=== PATIENT | male | born 1990 | race African-American/Black ===

== ENCOUNTER 2017-03-06 23:55 | Emergency (ER) | payer SELFPAY ==
--- NOTE | 2017-03-07 00:14 | PDOC ---
History of Present Illness - General History Source: Patient Exam Limitations: No Limitations - History of Present Illness Initial Comments: 03/07/17 02:44 Patient is a 26 year old male with no significant past medical history of who presents to the ED with complaints of sore throat that began 5 days ago. Patient reports experiencing sore throat symptoms secondary to lump in throat that he states began suddenly 5 days ago. He reports no change in diet or change in appetite but does state pain is reproduced by swallowing. Patient reports taking cough syrup for pain with minimal relief. Denies chest pain, SOB. Denies nausea, vomiting. Denies fevers, chills. Denies contact with sick individuals, out of state travelling. Denies any other symptoms. Allergies: None Social history: No smoke. No alcohol. Current Marijuana use. Surgical history: None PMD: Dr. Crain <Lamont Hester - Last Filed: 03/07/17 02:44> <Mariela Powell - Last Filed: 03/07/17 20:58> - General Stated Complaint: PAIN Time Seen by Provider: 03/07/17 00:07 Past History <Lamont Hester - Last Filed: 03/07/17 02:44> - Past Medical History Anemia: No Asthma: No Cancer: No Cardiac Disorders: No CVA: No COPD: No CHF: No Dementia: No Diabetes: Yes (borderline) GI Disorders: No Disorders: No HTN: No Hypercholesterolemia: No Liver Disease: No Seizures: No Thyroid Disease: No - Surgical History Abdominal Surgery: No Appendectomy: No Cardiac Surgery: No Cholecystectomy: No Lung Surgery: No Neurologic Surgery: No Orthopedic Surgery: No - Suicide/Smoking/Psychosocial Hx Smoking History: Never smoked Have you smoked in the past 12 months: No Hx Alcohol Use: No Drug/Substance Use Hx: Yes Substance Use Type: Marijuana <Mariela Powell - Last Filed: 03/07/17 20:58> - Past Medical History Allergies/Adverse Reactions: Allergies Allergy/AdvReac Type Severity Reaction Status Date / Time No Known Allergies Allergy Verified 03/07/17 00:18 Home Medications: Ambulatory Orders Acetaminophen [Tylenol .Regular Strength -] 650 mg PO Q6H PRN #100 tablet Amoxicillin/Potassium Clav [Augmentin 875-125 Tablet] 1 each PO BID #28 tablet 08/01/13 Mupirocin Cream [Bactroban 2% Cream -] 1 applic TP BID #1 tube 08/01/13 Review of Systems - Review of Systems Able to Perform ROS?: Yes Comments:: 03/07/17 02:44 GENERAL/CONSTITUTIONAL: No fever or chills. No weakness. HEAD, EYES, EARS, NOSE AND THROAT: +Sore throat. No change in vision. No ear pain or discharge. CARDIOVASCULAR: No chest pain or shortness of breath. RESPIRATORY: No cough, wheezing, or hemoptysis. GASTROINTESTINAL: No nausea, vomiting, diarrhea or constipation. GENITOURINARY: No dysuria, frequency, or change in urination. MUSCULOSKELETAL: No joint or muscle swelling or pain. No neck or back pain. SKIN: No rash NEUROLOGIC: No headache, vertigo, loss of consciousness, or change in strength/ sensation. ENDOCRINE: No increased thirst. No abnormal weight change. HEMATOLOGIC/LYMPHATIC: No anemia, easy bleeding, or history of blood clots. ALLERGIC/IMMUNOLOGIC: No hives or skin allergy. All Other Systems: Reviewed and Negative <Lamont Hester - Last Filed: 03/07/17 02:44> *Physical Exam - Vital Signs Last Vital Signs Temp Pulse Resp BP Pulse Ox 98.2 F 56 L 20 147/89 99 03/07/17 00:18 03/07/17 00:18 03/07/17 00:18 03/07/17 00:18 03/07/17 00:18 - Physical Exam Comments: 03/07/17 02:44 GENERAL: Awake, alert, and fully oriented, in no acute distress HEAD: No signs of trauma EYES: PERRLA, EOMI, sclera anicteric, conjunctiva clear ENT: +Pot throat. Auricles normal inspection, hearing grossly normal, nares patent, oropharynx clear without exudates. Moist mucosa NECK: Normal ROM, supple, no lymphadenopathy, JVD, or masses LUNGS: Breath sounds equal, clear to auscultation bilaterally. No wheezes, and no crackles HEART: Regular rate and rhythm, normal S1 and S2, no murmurs, rubs or gallops ABDOMEN: Soft, nontender, normoactive bowel sounds. No guarding, no rebound. No masses EXTREMITIES: Normal range of motion, no edema. No clubbing or cyanosis. No cords, erythema, or tenderness NEUROLOGICAL: Cranial nerves II through XII grossly intact. Normal speech, normal gait SKIN: Warm, Dry, normal turgor, no rashes or lesions noted. <Lamont Hester - Last Filed: 03/07/17 02:44> ED Treatment Course - ADDITIONAL ORDERS Additional order review: 03/07/17 00:50 Group A Strep Rapid Antigen - Final Throat <Lamont Hester - Last Filed: 03/07/17 02:44> Medical Decision Making - Medical Decision Making 03/07/17 20:57 Pt comes with sore throat. He is strep -; he smokes pot which is irritating the throat. Pt also has viral illness. D/c home <Mariela Powell - Last Filed: 03/07/17 20:58> *DC/Admit/Observation/Transfer - Attestations Scribe Attestion: 03/07/17 02:44 Documentation prepared by Lmaont Hester, acting as medical office clerk for Mariela Powell MD/DO. <Lamont Hester - Last Filed: 03/07/17 02:44> <Mariela Powell - Last Filed: 03/07/17 20:58> Diagnosis at time of Disposition: Viral pharyngitis, Cannabis abuse, episodic use - Discharge Dispostion Disposition: HOME Condition at time of disposition: Stable - Referrals Referrals: Elvia Crain MD [Primary Care Provider] - - Patient Instructions Printed Discharge Instructions: DI for Viral Pharyngitis
[2017-03-07 00:22] VITALS: BP 147/89; PULSE 56; TEMP 98.2; BMI 52.4
== END 2017-03-07 02:25 | disposition home or self-care (01) ==
LOC: JER 23:55
DX: J02.9 Acute pharyngitis, unspecified (principal); B97.89 Other viral agents as the cause of diseases classified elsewhere; F12.10 Cannabis abuse, uncomplicated
CPT/HCPCS: 87070; 87430; 99281-25

== ENCOUNTER 2020-03-13 07:16 | Emergency (ER) | payer OTHER ==
[2020-03-13 07:46] VITALS: TEMP 98.5; BMI 39.8
[2020-03-13] MEDS ORDERED: IBUPROFEN 600 MG TABLET (FP) PO ONE ×2 (08:36→08:41)
[2020-03-13] MEDS ORDERED: FAMOTIDINE 10 MG TABLET PO ONE (08:36)
[2020-03-13] MEDS ORDERED: MAG HYDROX/AL HYDROX/SIMETH -MYLANTA- ORAL SUSPENSION PO ONE (08:36)
[2020-03-13] MEDS ORDERED: MAG HYDROX/AL HYDROX/SIMETH 30 ML UNIT-DOSE CUP ONE (08:41)
[2020-03-13] MEDS ORDERED: FAMOTIDINE 10 MG TABLET ONE (08:41)
[2020-03-13 09:08] LABS: BASO % 0.7 % (0-2.0); EOS % 0.4 % (0-4.5); HEMATOCRIT 43.3 % (35.4-49); HEMOGLOBIN 13.9 GM/dL (11.7-16.9); LYMPH % 24.1 % (8-40); MEAN CELL VOLUME 81.2 fl (80-96); MEAN PLT VOLUME 9.5 fl (7.5-11.1); MONO % 11.7 % (3.8-10.2); NEUT % 63.1 % (42.8-82.8); PLATELET COUNT 221 K/MM3 (134-434); RBC 5.34 M/mm3 (4.00-5.60); RDW 14.5 % (11.9-15.9); WHITE BLOOD COUNT 8.3 K/mm3 (4.0-10.0)
[2020-03-13 10:06] LABS: POTASSIUM 3.9 mmol/L (3.5-5.1)
[2020-03-13 10:08] LABS: CALCIUM 9.3 mg/dL (8.5-10.1)
[2020-03-13 10:09] LABS: BLOOD UREA NITROGEN 10.1 mg/dL (7-18)
[2020-03-13 10:12] LABS: CREATININE 0.9 mg/dL (0.55-1.3)
[2020-03-13 10:42] VITALS: BP 148/92; PULSE 65
== END 2020-03-13 11:16 | disposition home or self-care (01) ==
LOC: JER 07:16
DX: K21.9 Gastro-esophageal reflux disease without esophagitis (principal)
CPT/HCPCS: 36415; 71045-TC-FY; 80048; 82550; 82553; 84484; 85025; 85379; 93005; 93010; 99285-25

== ENCOUNTER 2020-04-18 19:52 | Emergency (ER) | payer OTHER ==
[2020-04-18 20:01] VITALS: BP 146/90; PULSE 85; TEMP 98.2; BMI 38.6
== END 2020-04-18 22:19 | disposition home or self-care (01) ==
LOC: JER 19:52
DX: I49.49 Other premature depolarization (principal)
CPT/HCPCS: 93005; 93010; 99283-25

== ENCOUNTER 2021-09-16 13:15 | Emergency (ER) | payer OTHER ==
[2021-09-16 13:27] VITALS: BP 144/83; PULSE 61; RESP 20; TEMP 98.2; BMI 38.6
[2021-09-16] MEDS ORDERED: ACETAMINOPHEN 500 MG TABLET (FP) PO ONE (14:52)
[2021-09-16] MEDS ORDERED: ACETAMINOPHEN 500 MG TABLET (FP) ONE (15:05)
== END 2021-09-16 16:54 | disposition home or self-care (01) ==
LOC: JERFT 13:15
DX: S00.03XA Contusion of scalp, initial encounter (principal)
CPT/HCPCS: 70450-TC; 99284-25